=== PATIENT | female | born 1975 | race Caucasian/White ===

== ENCOUNTER 2016-04-05 12:11 | Inpatient (IN) | payer OTHER ==
[~2016-04-05] VITALS: Ht 162.6 cm; Wt 93.0 kg
[2016-04-05] VITALS (23 sets, daily range): BP systolic 64–150; BP diastolic 36–102; PULSE 74–127; RESP 8–17; O2SAT 97–100
[2016-04-05] MEDS: Lactated Ringer's 1,000 ML IV SCH ×6 (05:00→20:33)
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
[~2016-04-05 12:11] MED LIST: Clindamycin 900 mg/50 mL D5W IV ONE
[2016-04-05] MEDS ORDERED: Clindamycin 900 mg/50 mL D5W Premix IV ONE (12:49)
[2016-04-05] MEDS ORDERED: AZTREONAM IV ONE (13:41)
[2016-04-05] MEDS ORDERED: DEXTROSE 5% IV ONE (13:41)
[2016-04-05] MEDS ORDERED: SODIUM CHLORIDE 0.9% IV ONE (14:00)
[2016-04-05] MEDS ORDERED: GENTAMICIN IV ONE (14:00)
[2016-04-05] MEDS ORDERED: Bupivacaine-MPF 0.5% W/EPI 30 mL Inj INFILTRATE ONE (14:05)
[2016-04-05] MEDS ORDERED: Atropine 0.4 mg/mL Inj IVPUSH PRN (14:35)
[2016-04-05] MEDS ORDERED: Phenylephrine 10,000 mCg/mL Inj IVPUSH PRN (14:35)
[2016-04-05] MEDS ORDERED: hydrALAZINE 20 mg/mL Inj IVPUSH PRN (14:35)
[2016-04-05] MEDS ORDERED: Labetalol 5 mg/mL 4 mL Inj IV PRN (14:35)
[2016-04-05] MEDS ORDERED: fentaNYL-PF 50 mCg/mL 2 mL Inj IVPUSH PRN (14:35)
[2016-04-05] MEDS ORDERED: MetoCLOpramide 5 mg/mL 2 mL Inj IVPUSH PRN (14:35)
[2016-04-05] MEDS ORDERED: Ondansetron 2 mg/mL 2 mL Inj IVPUSH PRN ×2 (14:35→20:05)
[2016-04-05] MEDS ORDERED: EPHEDrine Sulfate 50 mg/mL Inj IVPUSH PRN (14:35)
[2016-04-05] MEDS ORDERED: Lactated Ringer's 500 ML IV PRN (14:35)
--- NOTE | 2016-04-05 16:13 | PCM.HPANE ---
Patient Data Surgeon Admitting Provider: Attending Provider:Abbe Wagoner MD Primary Care Physician:Maddie Other Provider:Eldon Mirza Anesthesia Reason for Visit Menorrhagia, Dysmenorrhea Ht/WT & BMI Height (Feet): 5 Height (Inches): 4 Weight (Kilograms): 86.18 Body Mass Index 32.00 Allergies Coded Allergies: Penicillins (Verified Allergy, Severe, hives, joint pain, 04/05/16) cephalexin (Verified Allergy, Unknown, 04/05/16) Past Anesthesia History Anesthesia History: Denies:: Abnormal Airway, Anesthesia Reactions (epidurals for c sections not effective, needed general), Difficult Intubation, Fam Anesthesia Reaction Diabetes History Hx Diabetes?: No MRSA MRSA: No Medications Hypertension Medication: No Home Meds Incl Beta Getachew: No No Active Prescriptions or Reported Meds History HEENT History: Denies:: Abnormal Airway Cataracts Difficult Intubation Dysphagia Glaucoma Hearing Problem Sinus Problem TMJ Cardiovascular History: Denies:: AICD Abdominal Aortic Aneurism Atrial Fibrillation Chest Pain Congestive Heart Failure Coronary Artery Disease Edema Heart Murmur Hypertension Irregular Heartbeat Pacemaker Peripheral Vascular Rheumatic Fever Thrombophlebitis Valvular Heart Disease Hx of Respiratory Problem?: No Respiratory History: Denies:: Asthma COPD Cough Emphysema Oxygen Administration Pneumonia Tuberculosis Use of C-PAP Machine Use of Inhalers / NEBS Hx Neurologic Problems?: No Neurological History: Denies:: Alzheimer's Disease CVA Dementia Dizziness Headaches Multiple Sclerosis Parkinson's Disease Seizures TIA Hx of GI Problems?: No Gastrointestinal History: Denies:: Cirrhosis Gall Bladder Disease Gastroesphageal Reflux Gastrointestinal Bleeding Heartburn Hepatitis Liver Disease Hx of Problems?: No Genitourinary History: Denies:: Kidney Stones Urinary Tract Infection Female Hx: Denies:: Currently Problems with Breasts? (breast bx- benign ) Skin History: Denies:: History Skin Disorders? Pressure Ulcers Hx Musculoskeletal Problems?: No Musculoskeletal History: Denies:: Back Injury Fibromyalgia Joint Replacement Musculoskeletal Trauma Myasthenia Gravis Osteoarthritis Rheumatoid Arthritis Systemic Lupus Hx of Psycho/Social Problems?: No Psycho Social History: Denies:: Anxiety Hx Depression Hx Surgeries?: Yes (c section x 2, breast reduction) Hx Any Other Health Problems?: Yes Other History: Denies:: Cancer Thyroid Disease History Blood Transfusions: Denies:: Accept Blood Products? Blood Transfusions Hx Diabetes: No Hx Alcohol Use: YesAlcoholic Drinks Per Day: one drink weeklyHx Substance Use : NoHave You Smoked inLast 12 mo: No Stop/Bang S-Snoring: Do You Snore Loudly: No T-Tired: feel tired, fatigued: No O-Obsered: Observed not breath: No P-Blood Pressure: treated: No B- Body Mass Index > 35 kg/m2: No A- Age over 50: No N- Neck Large Circumference: No G- Gender Male: No ALLI Total Score: 0 Risk Assessment Category Category 1A: Patient has history of documented sleep apnea, and HAS NOT received any narcotic, sedative or anesthesia administration during this stay. Category 1B: Patient has history of documented sleep apnea, and HAS received any narcotic , sedative or anesthesia administration during this stay Category 2: Patient has SUSPECTED Obstructive Sleep Apnea, and HAS received any narcotic , sedative or anesthesia administration during this stay. Category 3: Patient has SUSPECTED Obstructive Sleep Apnea and HAS NOT received narcotic, sedative or anesthesia administration during this stay. Category 4: Outpatient in Procedural Areas with known sleep apnea or who screen positive for High Risk via the STOP/BANG questionnaire. Exam Exam General Appearance: Alert, Oriented X3, Cooperative, No Acute Distress HEENT/AIRWAY: MP 2, Neck Movement (FROM), Mouth Opening (3 FBMO) Lungs: Clear to Auscultation, Normal Air Movement Heart: Exam Unremarkable, Regular Rate/Rhythm, No Murmurs/Rubs/Gallops Plan Impression Patient chart reviewed, patient interviewed and anesthestic plan with risks, benefits, and alternatives discussed, and informed consent obtained. NPO Status: > 8 hrs ASA Physical Status: ASA1 Plus Emergency Anesthetic Plan: GA, SAB (duramorph spinal for postoperative pain control if surgeon does a LAVH) Bene/Risks/Altern/Consents: Yes HP Complete Prior to Induction: Yes Dionte Fenton MD Apr 05, 2016 09:39
[2016-04-05] MEDS ORDERED: Lactated Ringer's 1,000 ML IV ONE ×3 (16:16→21:25)
[2016-04-05] MEDS ORDERED: levoFLOXacin 500 mg/100 mL D5W Premix IV ONE (18:45)
[2016-04-05] MEDS ORDERED: levoFLOXacin Inj 500 MG in IV Premix 1 EACH IV ONE (19:00)
[2016-04-05] MEDS ORDERED: levoFLOXacin 500 mg Tablet PO ONE (19:00)
[2016-04-05] MEDS ORDERED: 0.9% Sodium Chloride 1,000 ML IV ONE (19:53)
[2016-04-05] MEDS ORDERED: Acetaminophen IV 1,000 MG in IV Premix 1 EACH IV PRN (20:05)
[2016-04-05] MEDS ORDERED: Alum-Mag Hydrox-Simeth 30 mL Suspension PO PRN (20:05)
[2016-04-05] MEDS ORDERED: Senna-Docusate 8.6-50 mg Tablet PO PRN (20:05)
[2016-04-05] MEDS: Senna-Docusate 8.6-50 mg Tablet PO SCH (20:30)
[2016-04-05] MEDS ORDERED: hydrOXYzine Inj 25 MG/1 mL SDV IM ONE (20:50)
[2016-04-05] MEDS: HYDROmorphone 1 mg/mL Inj IVPUSH PRN ×2 (21:24→21:43)
[2016-04-05 21:33] LABS: BASOPHILS % (AUTO) 0.1 % (0-3); EOSINOPHILS % (AUTO) 0.1 % (0-5); MONOCYTES % (AUTO) 5.8 % (4-12); Mean Corpuscular Volume 91.3 fL (81-100); Platelet Count 385 bil/L (150-400)
--- NOTE | 2016-04-05 23:05 | OP ---
[address] [address] OPERATIVE REPORT PATIENT: MALENA CUNNINGHAM : 1975 MR#: [id number] ADMIT: 04/05/2016 JOB ID: [id number] DATE OF SURGERY: 04/05/2016 PREOPERATIVE DIAGNOSIS(ES): Cystotomy. POSTOPERATIVE DIAGNOSIS(ES): Cystotomy. PROCEDURE: Cystotomy repair. SURGEON: Lubna Ge M.D. SUPERVISOR DIAGNOSTIC: Augusto Mata MD (His expert assistance was required for adequate exposure of the bladder). FINDINGS: A 3-4 cm posterior bladder laceration. ANESTHESIA: General. ESTIMATED BLOOD LOSS: Less than 10 mL. DRAINS: 1. Hernandez catheter to the bladder. 2. A 19-Paraguayan RICARDO drain. SPECIMENS: None. COMPLICATIONS: None. CONDITION: Stable. INDICATION FOR PROCEDURE: The patient is a 40-year-old woman who Urology was called intraoperatively for a cystotomy, which occurred during a laparoscopic assisted vaginal hysterectomy. DESCRIPTION OF PROCEDURE: Upon entry into the room, Dr. Mata and I surveyed the bladder laceration through the vagina; the defect could be palpated manually. The cystotomy appeared to be posterior and extraperitoneal. The Hernandez catheter balloon could be felt through the cystotomy. Dr. Mata performed a cystoscopy, which will be dictated separately. After gynecology finished their portion of the procedure, the patient was then placed in a supine position. All pressure points were identified and appropriately padded. A catheter was placed into the bladder. The patient's abdomen was prepped and draped in the usual sterile fashion. A midline infraumbilical incision was made from the superior aspect of the pubic bone to a few centimeters inferior to the umbilicus. Bovie electrocautery was used to incise the subcutaneous tissues and fascia. Extraperitoneal dissection was performed bluntly by hand. The Hernandez catheter balloon could be felt through the bladder. Bookwalter retractor was placed over the patient with care being taken to not directly rest it upon the patient. It was observed that there was some clot in the intraperitoneal cavity. Clots were removed. The intraperitoneal contents were retracted gently with a malleable retractor attached to the Bookwalter. A cystotomy was then made with Bovie electrocautery in the midline extending from the superior aspect of the bladder to the anterior aspect. Irrigation was applied, and there was seen clearly the 3-4 cm laceration that had an oblique lie at the posterior bladder. Both ureteral orifices were seen in orthotopic position and were well away from the cystotomy. The detrusor was closed with 3-0 Vicryl in running fashion. It was observed that her bladder was quite thin. The mucosal layer was also closed in running fashion with a Vicryl. Next, the anterior cystotomy that we had made was closed with a 3-0 Vicryl in running fashion. The detrusor was closed over it in a Lembert running fashion. The water tightness was checked via the catheter, insufflating the bladder with sterile saline. The extravesical fat was closed over it. Next, attention was then turned to the intraperitoneal cavity where again there was observed to be bleeding. It appeared to be active bleeding. Dr. Wagoner was then contacted, and he returned to the room. There was bleeding observed along a surgical pedicle along the left pelvis. This was explored and closed with running 2-0 silk. Surgicel was placed over it. There was excellent hemostasis at this point. Next, the intraperitoneal contents were then replaced in orthotopic position. A 19 round RICARDO drain was placed over this area. Looped 0 PDS was used at the inferior and superior aspects of the incision to close the wound. The Emilee's layer was closed with 3-0 Vicryl in interrupted fashion. The skin was closed with 4-0 Monocryl in running fashion. There was a laparoscopic incision along her old Pfannenstiel that was closed with 4-0 Monocryl. The wound was then dressed with Dermabond. The RICARDO drain was dressed with a drain sponge and Tegaderm. All counts of needles, sponges, and instruments were correct at the end of the procedure. The patient appeared to tolerate the procedure without apparent complications. CORTEZ
[2016-04-05] MEDS ORDERED: Glycopyrrolate 0.2 mg/mL 5 mL Inj ONE (23:25)
[2016-04-05] MEDS ORDERED: Rocuronium 10 mg/mL 5 mL Inj ONE (23:25)
[2016-04-05] MEDS ORDERED: MetoCLOpramide 5 mg/mL 2 mL Inj ONE (23:25)
[2016-04-05] MEDS ORDERED: Bupiv-Spinal 0.75%/Dex 8.25% 2 mL Inj ONE (23:25)
[2016-04-05] MEDS ORDERED: Morphine PF 1 mg/mL 10 mL Inj ONE (23:25)
[2016-04-05] MEDS ORDERED: Propofol 10,000 mCg/mL 20 mL Inj ONE (23:25)
[2016-04-05] MEDS ORDERED: Dexamethasone 4 mg/mL Inj ONE (23:25)
[2016-04-05] MEDS ORDERED: Remifentanil 1 mg/3 mL Inj ONE (23:25)
[2016-04-05] MEDS ORDERED: fentaNYL-PF 50 mCg/mL 2 mL Inj ONE (23:25)
[2016-04-05] MEDS ORDERED: Ondansetron 2 mg/mL 2 mL Inj ONE (23:25)
[2016-04-06] VITALS (22 sets, daily range): BP systolic 82–116; BP diastolic 49–66; PULSE 102–137; RESP 15–16; O2SAT 99–100
[2016-04-06] MEDS: Lactated Ringer's 1,000 ML IV SCH ×4 (03:13→22:43)
[2016-04-06] MEDS: oxyCODONE-Acetamin 5-325 mg Tablet PO PRN ×2 (05:19→22:05)
--- NOTE | 2016-04-06 05:28 | NUR ---
Arrival to unit Patient arrived to unit at approx 2315 via hospital bed from PACU. Patient was sleepy but easy to arouse. 3L o2 Via NC was being worn to maintain sats > 92%. POLICE CHIEF DEPUTY applied. Patient denies any pain, and states that she feels more uncomfortable (4/10) than she does actual pain. Patient complains of tingling of fingers, L>R. Patient remains hypotensive, frequent BPs are being preformed. Hernandez was draining pink tinged urine to gravity, but now has progressed to a pale yellow color. Tele monitor applied, and patient has been running SR Tach throughout the shift. Patient denies any CP, or SOB. IV in left AC is currently infusing LR @ 150 cc/hr. Patient has been tolerated ice chips, and water. SCDs are being worn, and call light is within reach. Will continue to monitor, and continue Q 1 hour checks.
[2016-04-06 05:41] LABS: BASOPHILS % (AUTO) 0.1 % (0-3); EOSINOPHILS % (AUTO) 0 % (0-5); MONOCYTES % (AUTO) 8.6 % (4-12); Mean Corpuscular Hemoglobin 29.2 pg (27.0-35.0); Mean Corpuscular Volume 90.9 fL (81-100); NEUTROPHILS % (AUTO) 84.6 % (40-74); Platelet Count 363 bil/L (150-400)
[2016-04-06] MEDS: Senna-Docusate 8.6-50 mg Tablet PO SCH ×2 (08:41→21:08)
--- NOTE | 2016-04-06 10:39 | PCM.ANEP1 ---
Post Anesthesia Phase 1 PACU Phase 1 Assessment Vital Signs Vital Signs Date Time Temp Pulse Resp B/P Pulse Ox O2 Delivery O2 Flow Rate FiO2 04/06/16 08:53 99/66 04/06/16 08:20 36.3 103 15 92/60 99 Room Air 04/06/16 07:00 111 90/60 04/06/16 06:45 108 93/60 04/06/16 06:26 111 95/62 04/06/16 06:08 111 16 90/58 99 Nasal Cannula 2.00 04/06/16 05:45 106 04/06/16 04:40 36.6 108 16 104/66 99 Nasal Cannula 2.00 04/06/16 03:00 109 91/62 04/06/16 02:45 105 82/49 Anesthetic Administered: GA Level of Alertness: Awake, talking DESIR's with Equal Strength: Yes Pain: Yes Pain Scale Score: 8 Nausea or Vomiting: No Oxygen Delivery: Simple Mask Lungs: Clear to Auscultation, Normal Air Movement Dermatome Level: Full Sensation Dionte Fenton MD Apr 06, 2016 10:39
--- NOTE | 2016-04-06 10:39 | PCM.ANEP2 ---
Post Anesthesia Evaluation ASA/CMS Post Anesthesia VS in Patient's Normal Range?: Yes Resp Stable; Airway Patent?: Yes CV Function & Hydration Stable: Yes Mental Status Recovered?: Yes Pain control Satisfactory?: Yes N/V Control Satisfactory?: Yes Dionte Fenton MD Apr 06, 2016 10:39
--- NOTE | 2016-04-06 10:40 | NUR ---
Chest Pain Pt experiencing chest pain and SOB. Pt stated that she had a couple of visitors and after they left she felt heaviness in her chest. Pt was sating 98% on 1 L O2 so her O2 was taken off. Put the pt back on 2L O2, ordered a stat EKG and jose FOLEY. Addendum: 04/06/16 at 1928 by MATTHEW BAIG RN Put pt on 2L oxygen, decreased the visitors, and gave dose of IV Lorazepam. Pt was able to take a nap and rest. Pt still complained of pain in the abdomen, and some shoulder pain but said the pressure in her chest had decreased. Will continue to monitor.
[2016-04-06 11:29] LABS: Mean Corpuscular Hemoglobin 28.9 pg (27.0-35.0); Mean Corpuscular Volume 90.7 fL (81-100)
--- NOTE | 2016-04-06 11:38 | PCM.PNSURG ---
Subjective Date of Service: Apr 06, 2016 Date of Service: Apr 06, 2016 Visit Information: Reason for Visit Menorrhagia, Dysmenorrhea Surgery/Surgery Date Post-Op Day # 1 cystotomy repair Date of Admission: Apr 05, 2016 at 23:24 Hospital Day # 2 Subjective: Ms Lehman reports incisional pain, tolerable with pain medication. Presently, her IV site is being changed, and she is under evaluation for chest pain. Objective Vital Sign- Last 8 Hours Date Time Temp Pulse Resp B/P Pulse Ox O2 Delivery O2 Flow Rate FiO2 04/06/16 10:39 Simple Mask 04/06/16 08:53 99/66 04/06/16 08:20 36.3 103 15 92/60 99 Room Air 04/06/16 07:00 111 90/60 04/06/16 06:45 108 93/60 04/06/16 06:26 111 95/62 04/06/16 06:08 111 16 90/58 99 Nasal Cannula 2.00 04/06/16 05:45 106 04/06/16 04:40 36.6 108 16 104/66 99 Nasal Cannula 2.00 Intake and Output- Last 8 Hour 04/06/16 Cumulative From/Thru 07:00 04/04/16 11:35 - 04/06/16 06:53 Intake Total 1169 ml 5727 ml Output Total 360 ml 1210 ml Balance 809 ml 4517 ml Intake Oral 100 ml 100 ml IV Total 1069 ml 5627 ml Output Urine Total 350 ml 600 ml Drainage Total 10 ml 10 ml Estimated Blood Loss 600 ml # Bowel Movements 0 0 General: Alert, Cooperative, No Acute Distress (she appears tired) Abdomen: Soft, Other (midline infraumbilical incision is c/d/i w/o exudate; patches of ecchymosis present along incision site) Extremities: Other (RICARDO: sanguinous drainage) Neuro: Cranial Nerves 2-12 nl Catheters: Urethral 2 Way Bowie (draining light yellow urine ) Result Diagram: 04/06/16 0452 Assessment & Plan Impression POD# 1 cystotomy repair Problems: Plan I explained the intraoperative findings and bladder repair. We discussed her catheter and RICARDO drain. - We reviewed that she can wear a leg bag while awake and leg bag while sleeping. - RICARDO drain will be removed prior to discharge. We discussed that her catheter can cause her to feel the need to urinate - We discussed that the repair should not cause LUTS in the watermaster RICARDO Cr is 0.66 c/w serum. My office will call the floor with f/u plan, which is as follows: - Continue bowie catheter for 2 wks - Cystogram at 2 wks as outpt - RTC w me in 2 wks for bowie DC and wound check Lubna Ge MD Apr 06, 2016 11:38
--- NOTE | 2016-04-06 11:46 | PCM.CHPMED ---
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 Associated left shoulder pain/anxiety talking about CP/SOB. Hg <8, HR <120s, EKG 118 sinus flat T/ST depression are not significant on lateral leads. NO GERD no vomiting, diffuse edema postop, ongoing L arm 150/h. Review of Systems - none of the following - F/C/sick contact / CHASE / lightheaded / dizziness / cough / bleeding/bruising / leg swelling / change in voiding / yeast infections / rash left upper extremity weaker/leg cramp abdominal pain at site of laparatomy scar PMHX childhood asthma, no issues recently IBS recurrent UTI Breast reduction lasics Social Hindu nonsmoker Fhx cancer/alcoholism PMH Allergies: Coded Allergies: Penicillins (Verified Allergy, Severe, hives, joint pain, 04/05/16) cephalexin (Verified Allergy, Unknown, 04/05/16) Social History Hx Alcohol Use: YesAlcoholic Drinks Per Day: one drink weekly Hx Substance Use: No Exam Vital Signs Vital Sign - Last Date Time Temp Pulse Resp B/P Pulse Ox O2 Delivery O2 Flow Rate FiO2 04/06/16 10:39 Simple Mask 04/06/16 08:53 99/66 04/06/16 08:20 36.3 103 15 99 04/06/16 06:08 2.00 Intake and Output 04/05/16 04/05/16 04/06/16 Cumulative From/Thru 15:00 23:00 07:00 04/04/16 11:35 - 04/06/16 06:53 Intake Total 1158 ml 3400 ml 1169 ml 5727 ml Output Total 700 ml 150 ml 360 ml 1210 ml Balance 458 ml 3250 ml 809 ml 4517 ml Intake Oral 100 ml 100 ml IV Total 1158 ml 3400 ml 1069 ml 5627 ml Output Urine Total 100 ml 150 ml 350 ml 600 ml Drainage Total 10 ml 10 ml Estimated Blood Loss 600 ml 600 ml # Bowel Movements 0 0 Lab and Diagnostics Labs Exam on admission NAD fatigued A + O x 3 NC/AT no icterus no injected eyes EOMI PERRL /no pharyngeal lesions/ no oral lesions / hearing intact Supple neck CTAB equal chest rise / no accessory muscle use / speaks in full sentences / no rrw RRR S1 S2 / no mrg / 2+ radial pulses Soft nt nd + BS no hepatosplenomegaly, no epigastric pain mild diffuse anasarca arms face no cyanosis no ecchymosis of lower extremities No rash / no jaundice DESIR SCDs in place LR 150/hr PIV newly placed left arm BNP normal Trop x2 normal PROCEDURE: CT ANGIO CHEST PULMONARY EMBOLISM ([id number]) INDICATIONS: chest pressure SOB post op TECHNIQUE: After the administration of intravenous contrast, 2 mm thick sections acquired from the pulmonary apices to the posterior costophrenic angles. 3-dimensional maximum intensity projection (MIP) coronal and sagittal reformats were then acquired through the thorax. For radiation dose reduction, the following was used: automated exposure control, adjustment of mA and/or kV according to patient size. COMPARISON: None. FINDINGS: Image quality: Excellent. Pulmonary arteries: Pulmonary arteries are normal in size, and demonstrate no intraluminal filling defects to suggest central pulmonary embolism. Lungs and pleura: There is mild dependent bibasal or atelectasis. Right apical scarring is present. There is a 13 mm diameter nodular density at the left lung base. No pleural effusions or pneumothorax. Central and peripheral airways are patent. Mediastinum: Heart size is normal, without pericardial effusion. No mediastinal or hilar adenopathy. Thoracic aorta is normal in caliber and enhancement. Esophagus is normal in caliber, without hiatal hernia. Bones and chest wall: No suspicious bony lesions. Ribs and thoracic spine appear intact throughout. Thyroid gland is within normal limits. No axillary or supraclavicular adenopathy. Abdomen: Visualized upper abdominal solid organs appear normal in the early arterial phase of enhancement. IMPRESSION: 1. No pulmonary embolus. 2. Left lung base 13 mm diameter nodule; followup is recommended as below. Fleischner Society criteria for SOLID lung nodule followup. Nodule size (mm)Low-risk patientHigh-risk [id number] follow-up neededFollow-up at 12 mo; if no change, no further follow-up>3-0Ovqksu-pm CT at 12 mo; if no change, no further follow-up needed.Initial follow-up CT at 6-12 mo, then 18-24 mo if no change. >6-8Initial follow-up CT at 6-12 mo, then 18-24 mo if no change. Initial follow-up CT at 3-6 mo, then 9-12 mo and 24 mo if no change. > 8Follow-up CT at 3, 9, 24 mo. Or PET and/or biopsy.Same as for low-risk pts. Result Diagram: 04/06/16 0452 Assessment & Plan Assessment Active issues and reason for admission Chest pressure with anxiety POD1 hysterectomy/bladder repair, mild post op anasarca, improved chest pressure after standing this evening, ongoing obstipation. --serial trop, PE negative, BNP normal --ativan nitro morphine ASA --incentive spirometer / duoneb prn Tachyardia, sinus, reactive -- pending TSH anasarca post op --anticipate diuresis after post op hypotension/obstipation resolves anemia post op --no current hemorrhage, no blood products Chronic issues known prior to admission, present on admission IBS temple DVT prophylaxis scd ambulate Assessment and plan were discussed with patient Problems: VTE Mechanical Devices: Intermittant Pneumatic CD Keyonna Perez MD Apr 06, 2016 11:46
--- NOTE | 2016-04-06 11:57 | DRSVH ---
PROCEDURE: X-RAY CHEST ONE VIEW ([id number]) INDICATIONS: chest pain TECHNIQUE: One view of the chest was acquired. COMPARISON: [facility], , CHEST 2VW, 04/11/2011, 18:30. FINDINGS: Surgical changes and devices: None. Lungs and pleura: No pleural effusions or pneumothorax. Linear opacity noted in the left lung base l ikely represents atelectasis. Mediastinum: Mediastinal contours appear normal. Heart size is normal. Bones and chest wall: No suspicious bony lesions. Overlying soft tissues appear unremarkable. IMPRESSION: No acute cardiopulmonary disease process. Dictated by: Mariel Alejandra MD, PhD on 04/06/2016 at 11:55 Approved by: Mariel Alejandra MD, PhD on 04/06/2016 at 11:55
[2016-04-06] MEDS: Famotidine Inj 20 MG in IV Premix 1 EACH IV SCH ×2 (12:11→21:08)
[2016-04-06] MEDS ORDERED: Calcium GLUCO 10% (Gm) 1 Gm/10 mL 50 mL Inj IV ONE (14:00)
[2016-04-06] MEDS ORDERED: Calcium GLUCO 10% (Gm) Inj 2 GM in 0.9% Sodium Chloride 50 ML IV ONE (14:25)
--- NOTE | 2016-04-06 16:52 | DRSVH ---
PROCEDURE: CT ANGIO CHEST PULMONARY EMBOLISM ([id number]) INDICATIONS: chest pressure SOB post op TECHNIQUE: After the administration of intravenous contrast, 2 mm thick sections acquired from the pulmonary api mary to the posterior costophrenic angles. 3-dimensional maximum intensity projection (MIP) coronal a nd sagittal reformats were then acquired through the thorax. For radiation dose reduction, the follo wing was used: automated exposure control, adjustment of mA and/or kV according to patient size. COMPARISON: None. FINDINGS: Image quality: Excellent. Pulmonary arteries: Pulmonary arteries are normal in size, and demonstrate no intraluminal filling d efects to suggest central pulmonary embolism. Lungs and pleura: There is mild dependent bibasal or atelectasis. Right apical scarring is present. T here is a 13 mm diameter nodular density at the left lung base. No pleural effusions or pneumothorax. Central and peripheral airways are patent. Mediastinum: Heart size is normal, without pericardial effusion. No mediastinal or hilar adenopathy . Thoracic aorta is normal in caliber and enhancement. Esophagus is normal in caliber, without hiat al hernia. Bones and chest wall: No suspicious bony lesions. Ribs and thoracic spine appear intact throughout. Thyroid gland is within normal limits. No axillary or supraclavicular adenopathy. Abdomen: Visualized upper abdominal solid organs appear normal in the early arterial phase of enhanc ement. IMPRESSION: 1. No pulmonary embolus. 2. Left lung base 13 mm diameter nodule; followup is recommended as below. Fleischner Society criteria for SOLID lung nodule followup. Nodule size (mm)Low-risk patientHigh-risk [id number] follow-up neededFollow-up at 12 mo; if no wooten e, no further follow-up>0-0Adexlh-zd CT at 12 mo; if no change, no further follow-up needed.Initial f ollow-up CT at 6-12 mo, then 18-24 mo if no change. >6-8Initial follow-up CT at 6-12 mo, then 18-24 mo if no change. Initial follow-up CT at 3-6 mo, then 9-12 mo and 24 mo if no change. >8Follow-up CT at 3, 9, 24 mo. Or PET and/or biopsy.Same as for low-risk pts. Dictated by: Peyton Villafuerte M.D. on 04/06/2016 at 16:50 Approved by: Peyton Villafuerte M.D. on 04/06/2016 at 16:50
--- NOTE | 2016-04-06 19:28 | NUR ---
Activity Went slow and got pt to the edge of the bed and sitting. Pt stated that she was a little light headed. Let the pt sit for awhile and pt stated she would like to stand. Pt stood and tolerated the activity okay.
--- NOTE | 2016-04-06 19:46 | NUR ---
Neuro Pt has numbness, tingling in her left hand. 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 MD eason.
[2016-04-06] MEDS ORDERED: Albuterol-Ipratropium 3 mL Inhalation Solution NEB PRN (21:45)
--- NOTE | 2016-04-06 22:15 | NUR ---
Bowie Catheter Changed Out Bowie not draining to gravity, even after gentle manual irrigation/repositioning. Light pink urine with small clots manually removed. Changed out bowie for 18 Fr to attempt more clot removal. Good results, bowie draining. Bladder scan unable to capture pt's bladder. Paged urology, unconcerned. Did order 2 meds for bladder spasms. Pt has been sleeping since replacing bowie. at bedside, appreciative of care. No concerns at this time.
[2016-04-07] VITALS (8 sets, daily range): BP systolic 100–109; BP diastolic 60–69; PULSE 103–117; RESP 16–20; O2SAT 95–100
--- NOTE | 2016-04-07 00:12 | NUR ---
family refused and wanted pt to sleep through the night. 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 Addendum: 04/07/16 at 0013 by NIKA CORDERO CNA Amended: Links added.
--- NOTE | 2016-04-07 01:39 | NUR ---
Care transferred Transferred to Lorena Rubio. Pt sleeping, at bedside. Has been sleeping since 2229. IV infusing. Hernandez draining to gravity.
--- NOTE | 2016-04-07 02:30 | OP ---
[address] [address] OPERATIVE REPORT PATIENT: MALENA CUNNINGHAM : 1975 MR#: [id number] ADMIT: 04/05/2016 JOB ID: [id number] DATE OF SURGERY: 04/05/2016 SURGEON: On the case: Abbe Wagoner MD. DEPUTY PROSECUTING ATTORNEY: Von Hinton MD. ANESTHESIA: Spinal plus general. PREOPERATIVE DIAGNOSIS(ES): 1. Progressive and severe menorrhagia. 2. Progressive and severe dysmenorrhea. POSTOPERATIVE DIAGNOSIS(ES): 1. Progressive and severe menorrhagia. 2. Progressive and severe dysmenorrhea. PROCEDURES PERFORMED: 1. Laparoscopic assisted vaginal hysterectomy. 2. Adhesiolysis. 3. Pelvic examination under anesthesia. 4. (Cystotomy repair, see urologist's operative report). FINDINGS AT SURGERY: Upon laparoscopic evaluation, uterus was noted to be mobile, without obvious fibroids, and with bladder peritoneal reflection adherent to the lower uterine segment, consistent with prior C-sections. Adherence appeared consistent across the lower uterine segment with some additional adhesion veils/bands extending a little more cephalad involving simply peritoneum to serosa. Ovaries were normal except for very small nodule projecting off of left ovarian surface , appearing to be most consistent with small benign fibroma. This was removed and sent separately to pathology. Fallopian tubes were normal except for very small single endometriosis spot on the left-sided distal fallopian tube serosa, electrocauterized during laparoscopic portion of the procedure. There was also another very small endometriosis site on the posterior leaf of the broad ligament on the left side, also removed. There was no other endometriosis in the pelvis. There was also no sign of infection or malignancy. Upon vaginal examination, before onset of procedure, cervix was noted to descend to +2 station with traction, and cervix was normal in appearance. At procedure's close, uterus and cervix had been removed, adhesions had been lysed, endometriosis implants had been treated, and there was no obvious internal or vaginal area bleeding at any site. Note that although planes developed easily vaginally, cystotomy site was noted on the posterior bladder fundal surface, cephalad to the trigone. This was noted to be approximately 3 cm in width. This cystotomy occurrence was extremely difficult to explain as no significant bladder work had been accomplished laparoscopically, rather only lysis of some adhesion bands. Furthermore, when then approached vaginally, the anterior plane developed easily between visualization and careful gentle blunt dissection with finger. Dense adhesions were thus not felt to be specifically noted. It was suspected that during the dissection process and early portions of the hysterectomy, with use of Ray retractor anteriorly, that the posterior bladder wall was entered likely via retractor and in an area of potential bladder wall compromise on the basis of prior sections, adhesions, and with some simple dissection required. Note also and perhaps more importantly, the entire bladder wall was noted to be very thin per urologists. This thin wall in conjunction with the potential compromise from prior surgeries and with adhesions and some required dissection (although seemingly simple), could all together have thus easily led to bladder wall weakness that could have resulted in its penetration by the retractor.The outcome of cystotomy was generally clean in appearance and ultimately was well repaired by urology. Urologist's cystoscope also demonstrated no compromise of the ureters which bilaterally drained urine under direct visualization. It certainly is anticipated that patient will do very well during the postoperative time frame. She has experienced significant surgery from gynecologic and urologic standpoints and will thus likely remain in the hospital for at least a couple of postoperative days. Gynecologic postop care will be routine, and urologic care will involve persistence of Hernandez catheter for two weeks as reported to me per Urology due to very thin wall of the bladder, in addition to urology management of drain. Would not anticipate any senior living sequela regarding the bladder or its function, note that the ovaries are normal and would be expected to continue to work properly, and the bonus visualized endometriosis with treatment in conjunction with hysterectomy will hopefully eliminate cyclical cramping while also excision of the uterus will definitely eliminate all bleeding. PROCEDURE IN DETAIL: The patient was placed in supine position on the operating table after activation of spinal anesthesia. Pelvic examination under anesthesia was accomplished and it was felt there was adequate uterine descent and vaginal space for laparoscopic assisted vaginal hysterectomy to be accomplished. This approach was chosen over simple total vaginal hysterectomy simply to allow visualization of the pelvis, to look for adhesions, and to start the hysterectomy process to ease the work needed vaginally in that patient has not had any vaginal births. Patient was then prepped and draped in the usual sterile manner and appropriate time-out was taken. Humi cannula was secured in place within the cervix/uterus and then enwrapped with sterile towel. Attention was then directed to the abdomen after changing of gloves. Short transverse subumbilical incision was made with a knife and this incision was then carried through subcutaneous tissues and fascia layer using blunt and sharp dissection. Peritoneal cavity was then carefully entered using gentle blunt dissection with finger and trocar sheath was secured in place with a pursestring stitch of 2-0 Vicryl suture at the fascial layer. The CO2 source was connected and the laparoscope was introduced with operating channel, video camera was attached as well as light source, and video laparoscopy was accomplished with findings as noted above. Short second puncture was made transversely with a knife at the midpoint of the prior section scar. A 5mm trocar sheath was then secured in place and grasping instrument advanced into the pelvis. Note that endometriosis sites were treated with the assistance of electrocautery and excision, and adhesion bands and veils were easily and carefully lysed involving the vesicouterine peritoneal fold and lower uterine segment. The bladder was gently pushed away a very short distance, yet no invasive or aggressive adhesiolysis was accomplished laparoscopically (or vaginally, see below). Thus, once simpler adhesions had been lysed and the endometriosis sites treated, the proximal fallopian tubes and utero-ovarian ligaments and upper aspects of the broad ligaments were electrocoagulated and divided, inclusive of the uterine arteries. There was no worrisome bleeding during these procedures nor was there any bleeding occurring at procedure's close. Upper pedicle lines were thus free of bleeding, ovaries and tubes remained, endometriosis had been treated, and we were ready for vaginal approach to complete the procedure. Ports were thus left in place on the abdomen and then attention was directed to the vagina where weighted speculum was placed posteriorly and a Celia clamp on the anterior cervical lip and another on the posterior cervical lip. Marcaine with epinephrine was then injected circumferentially around the cervic-vaginal mucosal junction and an incision was then made at this same site. Appropriate planes were then developed, first posteriorly with simple entrance into the posterior cul-de-sac. Anteriorly, plane also developed easily, with ready entrance into the perineal cavity. Uterine serosa could be visualized. The uterosacral ligaments were then clamped, divided and suture ligated using 0-Vicryl suture, followed by clamping and division and suture ligation also using 0-Vicryl suture of the cardinal ligament pedicles. Ultimately the uterus and cervix were freed up completely and removed, and the pedicle lines were inspected and there was no obvious bleeding. There was a little bit of oozing simply from the vaginal cuff edges focally. Blood loss at this point during the case was perhaps in the 150 cc range. Hernandez catheter was placed to check for clear urine yet none presented. Hernandez tube was palpated up to the balloon which could be felt behind the lower portion of the posterior bladder wall, yet then there was noted higher in the posterior bladder fundus in the midline region a bladder wall defect noted to be 3 cm in size, identified visually as well as palpably. It was at this point, that urology was consulted regarding the cystotomy and its management. Urologists conclude that they would prefer cystotomy closure via laparotomy incision as opposed to vaginal approach, and they also indicated that they prefer vertical midline incision as opposed to a Pfannenstiel incision. Urologists and I then agree that next step would be to close the vaginal cuff and the abdominal laparoscopic ports, and then to transition to the cystotomy repair per Urology. Dr. Hinton and I were agreeable to this plan, having together worked through the CONCIERGE surgery procedurally as well as evaluating various findings along the way. Pedicle lines were again inspected and there was no bleeding occurring. Vaginal cuff edges were inspected and there were only a couple sites of slight bleeding that would easily be resolved with cuff closure stitches. Vaginal cuff was then closed in [id number] fashion using [id number] stitches of 0- Vicryl suture after drawing together the uterosacral ligament pedicle ties for ligation. Vaginal cuff was then completely closed, there was no bleeding occurring, and attention was then directed to the abdomen after change of gowns and gloves. The laparoscope was then reintroduced into the abdomen, CO2 source connected as was light source and video camera, and video laparoscopy was accomplished once again. There was minimal blood and few tiny clots in the pelvis, and the pedicle lines were noted to be non bleeding. Ovaries and tubes remained. Laparoscope was then removed and both ports removed, and subumbilical fascial incision was closed in a pursestring fashion using 2-0 Vicryl suture. The subumbilical skin incision was then closed with 4-0 Vicryl suture interrupted vertical mattress stitches in subepithelial location. There was no bleeding occurring. Note that lower abdominal short transverse midline incision (5 mm port site) was then left open for potential incorporation by Urology into Pfannenstiel incision, if possible, although Urology did ultimately do vertical skin incision and at the end closed the small port site as well. See urologist's operative report for details regarding cystotomy repair procedures. Note that I did step scrub back into the case very briefly after the cystotomy repair to view new bleeding site along the left pedicle line, arterial, suspect of uterine artery origin. This was reasonably well visualized and a homoclip placed, followed by placement of a stitch per urologist who was in the optimal position to do so, thus achieving good hemostasis. Again, see urologist 's dictated note for details regarding their procedure's accomplished. Note that it is my suspicion that simple intra-abdominal manipulation with sponges and other possible instruments likely impacted the region of the pedicle lines leading to left-sided uterine artery origin bleeding that had been previously cauterized at time of laparoscopic portion of the hysterectomy. This is not necessarily surprising in that such bleeding can definitely recur when cauterized significant vessels are contacted. Furthermore, note that there had been no bleeding from the pedicle lines at final point of closure of the vaginal cuff nor was there any significant blood pool noted at time of final laparoscopic look, nor bleeding vessels at that time. Good news is that focal suturing by urologist as described eliminated the new onset bleeding at the left pedicle line. Abdominal wall closure was accomplished per Urology. At procedure's close, instrument, needle and sponge counts were all found to be correct. PROGNOSIS: Good for surgical recovery. ESTIMATED BLOOD LOSS: 600 cc estimated throughout the combination of procedures as described above. MTDD
--- NOTE | 2016-04-07 03:09 | PROG NOTE ---
[address] [address] PROGRESS NOTE PATIENT: MALENA CUNNINGHAM : 1975 MR#: [id number] ADMIT: 04/05/2016 JOB ID: [id number] DATE: 04/06/2016 This is a postop day number one note. SUBJECTIVE: The patient underwent laparoscopic assisted vaginal hysterectomy and adhesiolysis and cystotomy closure per gynecology and urology services. The patient has had adequate pain management, no vaginal bleeding of note, no incisional concerns, reasonable drain output, reasonable urine output, reasonable blood pressure, heart rate mildly tachycardic and afebrile. The patient was evaluated by Internal Medicine hospitalist in the setting of chest pressure and shortness of breath that developed this morning. Chest CT failed to demonstrate pulmonary embolus, chest x-ray was accomplished with incidental finding of nodule although no other acute changes, and lab work and EKG were accomplished apparently without any specific evidence for ischemia or myocardial infarction. The patient subsequently reportedly had relief of symptoms after some anti anxiety medication. I had a thorough discussion this morning with the patient and her once again regarding the surgical procedures as accomplished. I explained the finding of the cystotomy in a very thin walled bladder that likely was compromised by prior surgeries with scarring plus need for dissection with hysterectomy although dissection process appeared to occur rather simply. It seems likely cystotomy point was related to a Gonzalez retractor entrance through thin and compromised bladder wall. Repair went well and we would expect excellent healing. Patient will continue to be the followed by gynecology and urology. Note also that we discussed hemoglobin of 8.0 last evening, then 7.7, then 7.8. This would be consistent with blood loss noted during surgical procedures although having stabilized and without specific evidence for any recurrent bleeding postoperatively and with reasonable vitals and urine output. 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 PLAN: 1. Continue postoperative care. 2. Clear liquids, to gradually advance diet as tolerated. 3. Drain and Hernandez catheter management continuing per urology.
[2016-04-07 04:09] LABS: Free Thyroxine Index 2.1 (1.2-4.9); Thyroxine (T4) 6.2 ug/dL (4.5-12.0)
[2016-04-07] MEDS: Lactated Ringer's 1,000 ML IV SCH ×3 (05:17→20:58)
[2016-04-07] MEDS: oxyCODONE-Acetamin 5-325 mg Tablet PO PRN ×4 (05:27→23:40)
--- NOTE | 2016-04-07 05:36 | NUR ---
Pain Midnight vital signs declined per pt. request. Pt's bowie is patent and draining. Pt. rated pain 6/10. Percocet PO administered for pain. Will continue to monitor.
[2016-04-07] MEDS: Famotidine Inj 20 MG in IV Premix 1 EACH IV SCH ×2 (08:40→20:59)
[2016-04-07] MEDS: Senna-Docusate 8.6-50 mg Tablet PO SCH ×2 (08:40→21:02)
--- NOTE | 2016-04-07 10:35 | OP ---
[address] [address] OPERATIVE REPORT PATIENT: MALENA CUNNINGHAM : 1975 MR#: [id number] ADMIT: 04/05/2016 JOB ID: [id number] DATE OF SURGERY: 04/05/2016 PREOPERATIVE DIAGNOSIS(ES): Cystotomy. POSTOPERATIVE DIAGNOSIS(ES): Cystotomy. PROCEDURE: Cystoscopy. SURGEON: Augusto Mata MD. ASSISTANTS: None. ANESTHESIA: General. ESTIMATED BLOOD LOSS: Less than 5 mL. SPECIMENS: None. COMPLICATIONS: None. CONDITION: Stable. INDICATIONS: The patient is a 40-year-old female undergoing a laparoscopic-assisted vaginal hysterectomy by clinical documentation specialist, Dr. Abbe Wagoner, who was found intraoperatively to have a cystotomy, and urology consultation was requested from Dr. Lubna Ge and myself. DESCRIPTION OF PROCEDURE: The patient was under anesthesia, and intraoperative examination was performed by Dr. Ge and myself. Pelvic examination revealed a defect in the bladder wall. The bladder defect could be palpated manually through the anterior vaginal wall, and cystotomy appeared to be posterior. The Hernandez catheter balloon could be palpated through the cystotomy in the anterior vaginal wall. Cystoscopy was performed. Hernandez catheter was removed. A rigid cystoscope was passed into the urethra, and the urethra was seen to be normal. The bladder was visualized. An approximately 3-4 cm in diameter defect in the bladder wall could be seen in the inferoposterior bladder wall, and this defect was seen to be well away from the bilateral ureteral orifices. The bilateral ureteral orifices were seen to be intact and well preserved. No bladder tumors, lesions, or calculi were seen in the bladder. The bladder was drained via the cystoscope. The cystoscope was removed from the patient. Subsequently, Gynecology finished their portion of the procedure, and then, cystotomy repair was performed by Dr. Ge and myself, to be dictated separately by Dr. Ge, via a midline lower abdominal incision. The patient tolerated the procedure well. CORTEZ
--- NOTE | 2016-04-07 11:03 | PROG NOTE ---
[address] [address] PROGRESS NOTE PATIENT: MALENA CUNNINGHAM : 1975 MR#: [id number] ADMIT: 04/05/2016 JOB ID: [id number] DATE: 04/07/2016 POSTOP DAY #1: The patient underwent major surgery in the afternoon and evening of April 05, 2016. She is making progress in recovery during the postoperative timeframe, with stable vitals, afebrile, with reasonable pain management, having now stood up on a couple of occasions, with appropriate urine output, and without incisional problem. Drain output has been reasonable. Note that the patient had some on and off lower abdominal discomfort yesterday that vastly improved after changing Hernandez catheter to larger caliber to prevent clot plugging. Note also that the patient is doing well from a cardiorespiratory standpoint, with the prior chest pressure and shortness of breath episode yesterday morning felt to be related more to anxiety/panic, as opposed to any true cardiopulmonary difficulty, noting hospitalist workup including EKG, CT scan of the chest, and lab work. IMPRESSION: Postop by less than 40 hours, making progress in recovery. PLAN: 1. Continue postoperative care. 2. Increase ambulation in room and in hallway as this should benefit working out incisional pain, improving respiratory function, and to help facilitate gas passage. 3. Implement incentive spirometry use. 4. Gradually advancing diet. 5. Likely be able to remove the drain before discharge. 6. Continue Hernandez catheter in place. 7. Later to further discuss incidental finding of pulmonary nodule on CAT scan, warranting followup/evaluation as per radiologist's recommendation.
--- NOTE | 2016-04-07 17:47 | NUR ---
activity/O2 Pt up standing at side of bed 4 times today. attempted to ween pt off O2, Sats dropped to mid 80s on RA, placed back on 1L O2 Sats back up to high 90s. Gave pt an IS, taught pt how to use it, encouraging coughing and deep breathing. Pain well controlled with PO oxycodone. Hernandez draining light pink to yolanda urine with occasional clots, aware.
--- NOTE | 2016-04-07 17:51 | NUR ---
Social Work Note: Screen Note Data and Assessment: EMR reviewed. Destiny Lehman is a 40 year old female admitted on 04/06/16 for Menorrhagia and Dysmenorrhea. Pt has [facility] for insurance coverage and does not have a primary care physician listed. Pt lives in [place] with family and is independent at baseline. Pt is currently SBA in her room. No discharge needs identified at this time. SW to continue to follow incase a need arise. Plan: It is anticipated that patient will discharge home via POV when medically ready. No discharge needs identified at this time. SW to continue to follow. Alejandra Hallman LMSW, ACM
--- NOTE | 2016-04-07 21:00 | NUR ---
Transfer of Care Transfer of care was done around this time to Karey Mcclendon RN. Report was given to Karey.
[2016-04-08] VITALS (7 sets, daily range): BP systolic 97–127; BP diastolic 64–77; PULSE 89–109; RESP 16–20; O2SAT 96–99
[2016-04-08] MEDS: Lactated Ringer's 1,000 ML IV SCH ×4 (02:26→22:44)
--- NOTE | 2016-04-08 04:00 | NUR ---
Activity Pt again feeling congested and wanting to sit upright in bed. Pt then wanting to get OOB to stretch. This RN assisted pt with getting OOB. Per pt, had only stood, has not walked yet. At first, pt hunched over, stating "oh, that pulls." Pt slowly straightened up and walked in place for ~5 minutes. Pt then assisted back to bed. Tired, sleepy. Repositioned. Care continues.
[2016-04-08] MEDS: oxyCODONE-Acetamin 5-325 mg Tablet PO PRN ×4 (04:05→20:21)
--- NOTE | 2016-04-08 04:12 | NUR ---
Temperature At 2345, pt calling and stating feeling warm and c/o headache. VS obtained as pt awake and Tb 99.2. With pain abd pain, headache and temp, 1x Percocet given. Pt still sleepy and not wanting to be bothered in middle of night was instructed to call if she needed anything. Pt boosted up in bed, cool washcloth placed over head and pt falling asleep. At ~0200 pt awake and denying headache, no longer feeling hot, afebrile. VS charted.
[2016-04-08] MEDS: Senna-Docusate 8.6-50 mg Tablet PO SCH ×2 (09:07→20:21)
[2016-04-08] MEDS: Famotidine Inj 20 MG in IV Premix 1 EACH IV SCH ×2 (09:07→20:23)
--- NOTE | 2016-04-08 10:49 | PCM.PNMED ---
Subjective Date of Service Apr 08, 2016 Subjective pt denied chest pain for 2days after first episode, pain is relatively controlled c/o Lt shoulder pain Exam Vital Signs Vital Sign - Last Date Time Temp Pulse Resp B/P Pulse Ox O2 Delivery O2 Flow Rate FiO2 04/08/16 09:54 36.7 91 16 97/64 99 Nasal Cannula 2.00 Intake and Output 04/07/16 04/07/16 04/08/16 Cumulative From/Thru 15:00 23:00 07:00 04/04/16 11:35 - 04/08/16 05:04 Intake Total 2892 ml 913 ml 25164 ml Output Total 1634 ml 1275 ml 6774 ml Balance 1258 ml -362 ml 7804 ml Intake Oral 1010 ml 913 ml 3443 ml IV Total 1882 ml 14591 ml Output Urine Total 1600 ml 1250 ml 6035 ml Drainage Total 34 ml 25 ml 139 ml Estimated Blood Loss 600 ml # Bowel Movements 0 0 Exam NAD, comfortably laying down on the bed no JVD, MMM, no LAD RRR, nl s1, s2 no mrg CTAB, no w,c s/p surgical scar, tender, BS+ warm, no edema, pulses 2/2 IVs and Medications Medications Reviewed: Medications were reviewed in detail Lab and Diagnostics Result Diagram: 04/06/16 1126 04/06/16 1126 Assessment & Plan Acute episodes of chest pain -Patient had serial troponins negative, EKG did not show any ischemic changes. Chest pain was one episode, which resolved spontaneously. PE was ruled out with negative CTA. Patient does not carry high risk of cardiovascular disease. At this point, it unlikely that this is ischemic heart disease which needs further intervention. Possible diagnosis could be GERD/PUD, esophageal spasm, costochondritis. Thank you for opportunity to follow the patient. Hospitals service will sign off. Please feel free to contact if you have more questions or concerns. VTE Mechanical Devices: Intermittant Pneumatic CD Time spent 35min Megan Stout MD Apr 08, 2016 10:30
[2016-04-08] MEDS: MetoCLOpramide 5 mg/mL 2 mL Inj IVPUSH PRN (19:13)
--- NOTE | 2016-04-08 19:24 | NUR ---
Activity Pt up standing at edge of bed this am, walked around bed once and walked to the lemus and back this evening. Pt passing small amounts of gas, no BM yet. Urine clearing up pale pink most the time off and on yolanda. Pt became Nauseous this evening, just administered 10mg IV Reglan, shift superintendent caustic cresylate RN will reassess.
--- NOTE | 2016-04-08 23:11 | PROG NOTE ---
[address] [address] PROGRESS NOTE PATIENT: MALENA CUNNINGHAM : 1975 MR#: [id number] ADMIT: 04/05/2016 JOB ID: [id number] DATE: 04/08/2016 POSTOPERATIVE DAY NUMBER THREE NOTE: The patient underwent laparoscopic-assisted vaginal hysterectomy and cystotomy repair per [facility] and Urology services on April 05, 2016. Note that during the postoperative timeframe, the patient has experienced gradual improvement, today demonstrating stable vital signs, afebrile, (T-max 37.6), good O2 sats on 2 L per nasal cannula, controlled incisional pain, no reported vaginal bleeding, no incisional problems, no leg pain, no recurrent calf pain, or pressure or shortness of breath. Of note, although slightly panicky when tried off of oxygen although it, now standing at times and with encouragement to walk out in the hallway, with reasonable urine output, and with advancing diet with solid food last night and this morning. The patient was feeling better about her recovery and progress this morning when I rounded on her. Note that there needs to be further improvement in activity levels, and thus I have encouraged the patient to walk out in the hallway every 2-4 hours today. She also should continue to focus on incentive spirometer use and ultimately we should be able to stop oxygen therapy. Increasing activity will also help work out soreness sooner as well as increase the likelihood of gas passing sooner as opposed to later. She is feeling air moving around in her GI system although none has passed yet. Note that the larger caliber Hernandez catheter is demonstrating improved drainage and urine output has been good. The Hernandez catheter and drain management continue to be per urologist. IMPRESSION: Postoperative day number three status post laparoscopic-assisted vaginal hysterectomy, adhesiolysis, and cystotomy repair per [facility] and Urology services. Recovery progressing. PLAN: 1. Postoperative care per [facility] and Urology, with latter specifically managing Hernandez catheter (which will likely be in place for a couple of weeks postop) as well as drain. 2. Increase activity. Ambulating in the hallway and with the use of incentive spirometer. CORTEZ
[2016-04-09] VITALS (7 sets, daily range): BP systolic 124–150; BP diastolic 81–89; PULSE 77–94; RESP 16–20; O2SAT 94–100
[2016-04-09] MEDS: oxyCODONE-Acetamin 5-325 mg Tablet PO PRN ×4 (01:29→22:59)
[2016-04-09] MEDS: Lactated Ringer's 1,000 ML IV SCH ×4 (05:35→20:02)
--- NOTE | 2016-04-09 05:41 | NUR ---
GI / Pt up walking short distances in hallway in effort to increase bowel activity; reports finally passing small amounts of gas. Reports a feeling of pressure intermittently in bladder; bowie irrigated with removal of moderately small clot, pt reports improved comfort; bowie draining freely, urine remains moderate pink. Continuing IVF for higher output through bladder. Hourly rounding ongoing.
--- NOTE | 2016-04-09 07:56 | PCM.PNSURG ---
Subjective Date of Service: Apr 09, 2016 Date of Service: Apr 09, 2016 Visit Information: Reason for Visit Menorrhagia, Dysmenorrhea Surgery/Surgery Date Post-Op Day # 4 Date of Admission: Apr 05, 2016 at 23:24 Hospital Day # 5 Subjective: Ms Lehman reports feeling better overall but nauseous at times. Her pain is controlled. Objective Vital Sign- Last 8 Hours Date Time Temp Pulse Resp B/P Pulse Ox O2 Delivery O2 Flow Rate FiO2 04/09/16 05:35 36.4 77 16 124/85 96 Nasal Cannula 2.00 Intake and Output- Last 8 Hour 04/09/16 Cumulative From/Thru 07:00 04/04/16 11:35 - 04/09/16 05:36 Intake Total 1996 ml 74166 ml Output Total 1790 ml 86264 ml Balance 206 ml 12739 ml Intake Oral 475 ml 4638 ml IV Total 1521 ml 31040 ml Output Urine Total 1750 ml 9885 ml Drainage Total 40 ml 209 ml Estimated Blood Loss 600 ml # Bowel Movements 0 0 General: Alert Abdomen: Soft, Other (wound c/d/i) Extremities: Warm Neuro: Cranial Nerves 2-12 nl Catheters: Urethral 2 Way Hernandez (clear yellow in tubing and bag) Result Diagram: 04/06/16 1126 04/06/16 1126 Assessment & Plan Impression POD# 4 cystotomy repair Problems: Plan RICARDO Cr DC RICARDO after RICARDO Cr result reviewed Hernandez x 2 wks F/U 2 wks with cystogram Lubna Ge MD Apr 09, 2016 07:56
[2016-04-09] MEDS: Famotidine Inj 20 MG in IV Premix 1 EACH IV SCH ×2 (08:20→21:19)
[2016-04-09] MEDS: MetoCLOpramide 5 mg/mL 2 mL Inj IVPUSH PRN ×2 (08:27→18:11)
[2016-04-09] MEDS: Senna-Docusate 8.6-50 mg Tablet PO SCH ×2 (08:30→21:19)
--- NOTE | 2016-04-09 14:59 | PATH ---
SURGICAL PATHOLOGY Attending Physician:Abbe Wagoner M.D CASE STATUS: Signed Out PATIENT NAME: MALENA CUNNINGHAM PID: [id number] : 1975 DATE COLLECTED:04/05/2016 23:40 SPECIMEN: 1: Ovary Biopsy 2: Uterus +/- tubes/ovaries, except neoplastic, prolapse CLINICAL HISTORY: MENORRHAGIA, DYSMENORRHEA 1. LEFT OVARIAN SURFACE NODULE 2. UTERUS FINAL DIAGNOSIS: 1. Left Ovarian Surface Nodule: Calcified fat necrosis. No evidence of malignancy. 2. Uterus, Hysterectomy Uterus (87grams), with no pathologic alterations. Negative for dysplasia, hyperplasia and neoplasia. ICD10 N92.0, N83.9 GROSS DESCRIPTION: The specimens are received in formalin, labeled with the patient's name, and sublabeled as the following: (1) left ovarian surface nodule; (2) uterus. (1) The specimen consists of a frost-yellow smooth shiny cystic nodule (0.8 x 0.5 x 0.4 cm). The outer surface is firm and less than 0.1 cm thick. The cut surface is orange-frost and soft. Section code: (1A) nodule, bisected. Specimen entirely submitted. (2) The specimen consists of a uterus (87 g, 4.2 cm AP, 8.7 cm SI, 5.3 cm ML). The ovaries and fallopian tubes are absent. The cervix (2.5 x 2.5 cm) has a round os and patent endocervical canal. The endometrium (average thickness-0.1 cm) is frost-pink smooth and flat. The myometrium (thickness-up to 2.1 cm) is frost-white and unremarkable. The serosa is frost smooth and shiny. No nodules, masses or lesions are identified. Section code: (2A, 2B) anterior cervix; (2C, 2D) posterior cervix; (2E, 2F) anterior endomyometrium; (2G, 2H) posterior endomyometrium. 04/06/16 JM MICRO DESCRIPTION: Please see diagnosis. ICD-9 CODES: CPT CODES: 1: 79870 2: 01225 Electronically Signed Out Sara Licona MD [facility] [address] [place] [id number] Technical component performed at [facility], [address], [place], [address]
--- NOTE | 2016-04-09 19:58 | NUR ---
Pain/Hernandez /nausea Patient with pressure pelvic pain , urethral burning with Hernandez. Pt very uncomfortable despite pain Meds and repositioning of Hernandez tubing. Hernandez catheter flushed x 1 and few clots extracted. Urine output pink /watermelon colorPt with high anxiety regarding Hernandez discomfort. Pt up ambulated some, minimal flatus passed, abdomen soft but tender , midline incision with Dermabond intact. Pt with 02-2l prn .
[2016-04-09] MEDS: Tolterodine ER 2 mg ER24 Capsule PO PRN (21:19)
[2016-04-10] MEDS: Lactated Ringer's 1,000 ML IV SCH ×3 (01:45→20:02)
[2016-04-10] MEDS: oxyCODONE-Acetamin 5-325 mg Tablet PO PRN ×4 (03:18→23:16)
[2016-04-10 05:08] VITALS: BP 126/84; PULSE 91; RESP 20; O2SAT 96
--- NOTE | 2016-04-10 05:17 | NUR ---
Bladder spasms Continues to have pelvic discomfort associated with bowie, repositioned for comfort; meds for bladder spasms appear to help provide relief. Urine is light watermelon, few, small clots. Ambulates in hallway, passing some flatus. IVF infusing to support bladder flushing. Hourly rounding ongoing.
[2016-04-10] MEDS: MetoCLOpramide 5 mg/mL 2 mL Inj IVPUSH PRN (07:33)
[2016-04-10] MEDS: Senna-Docusate 8.6-50 mg Tablet PO SCH ×2 (07:38→21:29)
[2016-04-10 08:45] VITALS: PULSE 93; RESP 16; O2SAT 92
[2016-04-10 10:17] VITALS: BP 129/87; PULSE 87; RESP 20; O2SAT 97
--- NOTE | 2016-04-10 12:58 | PROG NOTE ---
[address] [address] PROGRESS NOTE PATIENT: MALENA CUNNINGHAM : 1975 MR#: [id number] ADMIT: 04/05/2016 JOB ID: [id number] DATE: 04/09/2016 SUBJECTIVE: This is a redictation of a postoperative day #4 note. I dictated the postoperative note yesterday evening on this patient. However, this note cannot be found and I thus must not have saved it. I am redictating this note from April 09, 2016, and will later today dictate the note from April 10, 2016. The patient is now in the first postoperative day, i.e. on April 09, 2016. Vitals have been stable and she has been afebrile. There is mild maternal tachycardia, worse when anxious. There are no worrisome findings. She is going without oxygen periodically and O2 sats have been staying up better, likely related to use of incentive spirometer and more activity ambulating. She has been slow to ambulate aggressively, but we have continued to encourage this day by day, and this is improving, including walks in the hallways. She reportedly had a little bit of gas passage, also perhaps related to activity, although not a great deal. She definitely has some moderate abdominal distention, likely related to gas, and Percocet use could certainly play a role as well in bowel function and I have encouraged her to use one instead of two. Otherwise, incisions are fine, without any sign of infection, there has been no significant vaginal bleeding, urine output has been good, drain output has not been excessive, and dietary intake continues orally with occasional nausea, although nausea medicine is helpful. I have certainly encouraged the patient to further increase activity, try to be up every couple of hours and walking in the hallway at least every 4 hours, in an effort to help work out soreness, improve respiratory function, and get the gas moving. She has understood these recommendations. She has had all of her questions answered and she has felt good with her progress, although she hopes that progress will more rapidly improve and she will feel better soon and be able to go home. I have encouraged her in this regard and we will hope to go home on postop day number five. IMPRESSION: Postop by four days following laparoscopic-assisted vaginal hysterectomy and cystotomy repair by urology. Doing okay. Greater activity, continue to advance the diet, and improve movement of gas. Improvement in these areas will allow the patient to go home. Will will hopefully be able to start to back down on pain medications as well. PLAN: Continue postoperative care, increase activity, advance diet, decrease pain medication as possible, and so forth.
[2016-04-10 16:53] VITALS: BP 124/85; PULSE 94; RESP 20; O2SAT 97
--- NOTE | 2016-04-10 18:43 | NUR ---
Pain/activity patient medicated for pain and spasms as needed prn t/o day. patient up ambulated hallway, took shower and has progressed some today. Patient saline locked with iv taking po fluids and even tolerated solids today. No bm yet some flatus noted per patient. Hernandez with yolanda urine .
[2016-04-10 20:00] VITALS: PULSE 95
[2016-04-10 20:10] VITALS: BP 131/84; PULSE 83; RESP 16; O2SAT 96
[2016-04-11 00:10] VITALS: BP 129/81; PULSE 80; RESP 16; O2SAT 95
[2016-04-11] MEDS: Lactated Ringer's 1,000 ML IV SCH ×3 (02:16→15:31)
[2016-04-11] MEDS: oxyCODONE-Acetamin 5-325 mg Tablet PO PRN ×4 (04:06→17:46)
--- NOTE | 2016-04-11 04:25 | NUR ---
Pain / ambulation Pain adequately controlled with Percocet and bladder spasms medications. Able to ambulate in hallway with FWW SBA. Hernandez patent, urine pink tinged. Hourly rounding ongoing.
[2016-04-11 06:11] VITALS: BP 117/78; PULSE 89; RESP 16; O2SAT 99
--- NOTE | 2016-04-11 06:19 | PROG NOTE ---
[address] [address] PROGRESS NOTE PATIENT: MALENA CUNNINGHAM : 1975 MR#: [id number] ADMIT: 04/05/2016 JOB ID: [id number] DATE: 04/10/2016 POSTOP DAY NUMBER FIVE NOTE: SUBJECTIVE: The patient underwent LAVH plus cystotomy repair per [facility] and urology on April 05, 2016. During the postoperative timeframe, patient has been gradually recovering, somewhat slow to move and breathe deep, although improving and now will appearing to have turned some corners. Patient is alert today, ambulating more, is moving more gas, has uncommon nausea now, is taking adequate fluids orally, had drain removed, and has had stable vitals and has remained afebrile, without incisional problem. There is no sign of incisional infection, abdomen is softer now that gas is moving. Calves are nontender, and so forth. The patient has not felt comfortable with discharge up to this point in time, although tomorrow i.e. April 11, 2016, appears promising now that she is feeling stronger and more confident in all areas. PLAN: 1. Continue postoperative care. 2. Dulcolax suppository may be utilized by patient to try to have bowel movement before going home, if she so requests. 3. Continued increase activity. 4. Continue to push oral fluids, dietary intake improving overall. 5. Hernandez catheter will be left in place for two weeks, with all follow up regarding catheter and bladder function per Urology.
[2016-04-11] MEDS: MetoCLOpramide 5 mg/mL 2 mL Inj IVPUSH PRN (08:55)
[2016-04-11] MEDS: Tolterodine ER 2 mg ER24 Capsule PO PRN ×2 (08:56→17:52)
[2016-04-11] MEDS: Senna-Docusate 8.6-50 mg Tablet PO SCH (08:56)
[2016-04-11 10:36] VITALS: BP 108/71; PULSE 88; RESP 16; O2SAT 97
--- NOTE | 2016-04-11 10:41 | NUR ---
Social Work Continued Discharge Planning: SW met with patient and bedside to discuss discharge plan. Patient states plan as home with spouse who to provide support and care. Patient states being able to manage bowie independently upon discharge. Patient declined need for any HHC at this time. No further discharge needs identified at this time. SW to follow if further needs arise. SW to follow. PLAN: Home with spouse via POV, pending clinical course Raymond TEMPLETON
[2016-04-11 13:39] VITALS: PULSE 92
--- NOTE | 2016-04-11 17:02 | PCM.DIGYN ---
Surgical Discharge Instruction Dates of Hospitalization Date of Hospital Admission Apr 05, 2016 at 23:24 Providers Admitting Physician: Abbe Wagoner MD Primary Care Physician: Maddie Attending Physician: Abbe Wagoner MD Diagnosis at Time of Discharge Problems: (1) Menorrhagia Status: Acute ICD Code: N92.0 (2) Dysmenorrhea Status: Acute ICD Code: N94.6 Diet Discharge Diet: No restrictions Activity Discharge Activity-General: No lifting >10 pounds for 4-6 weeks, Other (Pelvic Rest for 6 weeks.) Dressing and Incisional Care Hygiene: May shower, DO NOT soak incision under water, NO bathtub, hot tub or whirlpool Follow Up Plan Follow-up appointment: Weeks (Follow up with Dr. Wagoner at 2 and at 6 weeks for postoperative checkups. Follow up with Urology as already scheduled.) Call your provider for: Fever, Shortness of breath, Heavy vaginal bleeding, Wound redness Abbe Wagoner MD Apr 11, 2016 17:02
[2016-04-11] MEDS ORDERED: OXYC1TAB24 PO (17:10)
[2016-04-11] MEDS ORDERED: ONDA8TAB7 PO (17:10)
[2016-04-11] MEDS ORDERED: LORA-303 PO (17:10)
[2016-04-11] MEDS ORDERED: Bisacodyl RECTAL (17:10)
[2016-04-11] MEDS ORDERED: DOCU-41 PO (17:10)
--- NOTE | 2016-04-11 19:33 | NUR ---
Discharge Pt discharged to home with spouse via private vehicle at 1930 hrs. PIV removed intact. VSS. Pain controlled. Anxiety level reduced. Discharge and follow up instructions given to pt and she expressed understanding. Pt also given a urinary leg bag and instructed how to use it. All personal possessions sent with pt.
--- NOTE | 2016-04-12 06:48 | DIS ---
[address] [address] DISCHARGE SUMMARY PATIENT: MALENA CUNNINGHAM : 1975 MR#: [id number] ADMIT: 04/05/2016 JOB ID: [id number] DIS: 04/11/2016 DISCHARGE DIAGNOSIS: Progressive and severe menorrhagia and dysmenorrhea, now having undergone definitive surgical correction. PROCEDURES PERFORMED DURING HOSPITALIZATION: 1. Laparoscopic-assisted vaginal hysterectomy. 2. Cystotomy repair. 3. Spinal and general anesthesia. HOSPITAL COURSE: Patient was admitted to [facility] on April 05, 2016, on which date she underwent procedures as described. During the subsequent postoperative course, the patient did well, with improving and manageable postoperative pain, without postoperative bleeding, with gradual return of oral dietary intake, with gradually increasing activity, with reasonable urinary output, with reasonable vital signs, remaining afebrile, without incisional problem, and without leg pain or shortness of breath, etc. The patient was a little slow to move and breathe deep, yet she achieved all goals by time of discharge on the sixth postoperative day, i.e. on April 11, 2016. DISCHARGE PROGRAM: Patient will call p.r.n., yet otherwise she will follow up at [facility] for postoperative checkups at two and at six weeks. She will also follow up with Radiology service for imaging procedure on April 14, 2016, and then follow up with Urology on April 17, 2016. Patient will call sooner if she has any problems with Hernandez catheter that will be left in for two weeks postop, or if she has high fever, heavy bleeding, etc. She will observe pelvic rest and not do any heavy lifting for six weeks. DISCHARGE MEDICATIONS: Include Percocet, Ativan, Colace, Dulcolax suppository, and Zofran ODT, prescriptions written. [facility]
== END 2016-04-11 19:35 | disposition home or self-care (01) | DRG 742 ==
LOC: SAS 12:11 → OSC 23:24
PROVIDERS: ADMIT Obstetrics & Gynecology; ATTEND Obstetrics & Gynecology
PROC: 0TQB8ZZ Repair Bladder, Via Natural or Artificial Opening Endoscopic (ICD-10-PCS; 2016-04-05)
PROC: 0UT9FZZ Resection of Uterus, Via Natural or Artificial Opening With Percutaneous Endoscopic Assistance (ICD-10-PCS; principal; 2016-04-05 13:30)
PROC: 0UTC7ZZ Resection of Cervix, Via Natural or Artificial Opening (ICD-10-PCS; 2016-04-05 13:30)
DX: N92.0 Excessive and frequent menstruation with regular cycle (principal); S37.23XA Laceration of bladder, initial encounter; N99.71 Accidental puncture and laceration of a genitourinary system organ or structure during a genitourinary system procedure; N94.6 Dysmenorrhea, unspecified; Y92.234 Operating room of hospital as the place of occurrence of the external cause